=== PATIENT | female | born 1950 | race Caucasian/White ===

== ENCOUNTER → 2020-08-11 | Outpatient (CLI) | payer MEDICARE, OTHER ==
[~2020-08-11] MED LIST: ASPI81EC; ASPI81EC PO; ERGO50000; Flomax0.4 MG PO; HYDACE5 PO; KETO10 PO; LEVFLO500 PO; MAGGLU250; MULVITA; NAPR500 PO; NITR100CA PO; ONDA4 PO; ONDA8 PO; OXYACE5T PO; PHENA200 PO; Percocet 7.5-31 EACH PO; RXONDA4ODT MM; RXPROM25 PO; SULTRIDS PO; Zofran Odt4 MG SL; [UNRECOGNIZED DRUG - OTHER]
== END | disposition home or self-care (01) ==
LOC: PLD 15:40 → LAB SHORT 15:40
DX: R30.0 Dysuria (principal)
CPT/HCPCS: 87077; 87086; 87186

== ENCOUNTER → 2020-08-30 | Outpatient (CLI) | payer MEDICARE, OTHER ==
[~2020-08-30] MED LIST changes: +ASPI81CH PO
== END | disposition home or self-care (01) ==
LOC: LAB 15:50
DX: R30.0 Dysuria (principal); R10.9 Unspecified abdominal pain
CPT/HCPCS: 87077; 87086; 87186

== ENCOUNTER 2024-11-25 11:25 | Emergency (ER) | payer MEDICARE, OTHER ==
[~2024-11-25] VITALS: Ht 167.6 cm; Wt 75.3 kg
[2024-11-25 11:46] VITALS: BP 164/74
[2024-11-25] MEDS ORDERED: LIDO700A20 TOP (14:37)
[2024-11-25] MEDS ORDERED: DIAZ2 PO (14:37)
== END 2024-11-25 12:04 | disposition left against medical advice (07) ==
LOC: ER 11:25
DX: M54.9 Dorsalgia, unspecified (principal); G89.29 Other chronic pain; Z87.891 Personal history of nicotine dependence
CPT/HCPCS: 99282

== ENCOUNTER 2024-11-25 12:09 | Emergency (ER) | payer MEDICARE, OTHER ==
[~2024-11-25] VITALS: Ht 167.6 cm; Wt 75.3 kg
[2024-11-25 12:50] VITALS: BP 156/88
[2024-11-25] MEDS ORDERED: Ketorolac Tromethamine 30mg Vial IM ONE (13:50)
[2024-11-25] MEDS ORDERED: Acetaminophen 325 MG TABLET PO ONE (13:50)
[2024-11-25] MEDS ORDERED: Diazepam 5 MG Tab PO ONE (13:50)
[2024-11-25] MEDS ORDERED: Lidocaine 4% 1 Patch TOP ONE (13:50)
[2024-11-25] MEDS ORDERED: DIAZ2 PO (14:37)
[2024-11-25] MEDS ORDERED: LIDO700A20 TOP (14:37)
== END 2024-11-25 14:51 | disposition home or self-care (01) ==
LOC: ER 12:09
DX: M54.50 Low back pain, unspecified (principal); G89.29 Other chronic pain
CPT/HCPCS: 72131; 96372; 99283-25; A9270; J1885

== ENCOUNTER 2024-12-05 10:27 | Day surgery (SDC) | payer MEDICARE, OTHER ==
[~2024-12-05] VITALS: Ht 167.6 cm; Wt 77.2 kg
[~2024-12-05 10:27] MED LIST changes: +Balanced Salt Epinephrine Irrigation Solution 500 mL IR SCH; +DIAZ2 PO; +LIDO700A20 TOP; +Lidocaine HCl/Pf 1% 5 ML VIAL XX SCH; +Moxifloxacin HCL 0.5 MG/0.1 ML 0.4MLSYR LEFTEYE SCH; +PHENYLEPHRINE\\TROPICAMIDE\\TETRACAINE OPHTHALMIC DILATING SOLN LEFTEYE PRN; +Povidone-Iodine 450 DROP/30 ML Solution LEFTEYE SCH; +Povidone-Iodine 450 DROP/30 ML Solution ONE; +Tetracaine HCl/Pf 0.5% Opth Soln 4 ml ONE
[2024-12-05] MEDS ORDERED: CYCL10 (11:05)
[2024-12-05] MEDS ORDERED: CEFUROXIME AXETIL (11:05)
[2024-12-05] MEDS ORDERED: HYDROMET (11:06)
[2024-12-05] MEDS ORDERED: MIRALAX17 GM (11:06)
[2024-12-05] MEDS ORDERED: CENTRUM SILVER1 EAC2 (11:06)
[2024-12-05] MEDS ORDERED: IMODIUM A-D2 M1 (11:06)
[2024-12-05] MEDS ORDERED: [UNRECOGNIZED DRUG - OTHER] (11:06)
[2024-12-05] MEDS ORDERED: GUAI600T33 (11:07)
[2024-12-05] MEDS ORDERED: ZADITOR5 M1 (11:07)
[2024-12-05] MEDS ORDERED: [UNRECOGNIZED DRUG - SUPPLY] (11:07)
[2024-12-05] MEDS ORDERED: [UNRECOGNIZED DRUG - OTHER] (11:08)
[2024-12-05] MEDS ORDERED: Midazolam HCl 1MG / ML 2ML Vial ONE (11:08)
[2024-12-05] MEDS ORDERED: FentaNYL Citrate 50 MCG/ML 2 ML Injection ONE (11:09)
[2024-12-05 11:59] VITALS: BP 124/67
--- NOTE | 2024-12-05 12:17 | NUR ---
12/05/24 1217 Cynthia Nogueira D/Dariela INSTRUCTIONS GIVEN TO PT, UNDERSTANDING VERBALIZED. PT DENIES PAIN/NAUSEA, TOLERATING ICE WATER, VSS, ON RA. PT GIVEN EYE KIT. PT HAS ALL BELONGINGS. PT WHEELED TO PRIVATE VEHICLE, STEADY GAIT NOTED UPON TRANSFER FROM TO VEHICLE. NO VISIBLE SIGNS OF DISTRESS NOTED.
== END 2024-12-05 12:10 | disposition home or self-care (01) ==
LOC: ORSCSDS 10:27
PROVIDERS: Student in an Organized Health Care Education/Training Program
PROC: 08RK3JZ Replacement of Left Lens with Synthetic Substitute, Percutaneous Approach (ICD-10-PCS; principal; 2024-12-05 12:00)
DX: H25.813 Combined forms of age-related cataract, bilateral (principal); Z87.891 Personal history of nicotine dependence; Z79.899 Other long term (current) drug therapy
CPT/HCPCS: J2250; J3010; V2632

== ENCOUNTER 2024-12-26 09:02 | Day surgery (SDC) | payer MEDICARE, OTHER ==
[~2024-12-26] VITALS: Ht 167.6 cm; Wt 78.2 kg
[~2024-12-26 09:02] MED LIST changes: +CEFUROXIME AXETIL; +CENTRUM SILVER1 EAC2; +CYCL10; +Diazepam 5 MG Tab PO PRN; +Diazepam 5 MG Tab PO SCH; +GUAI600T33; +HYDROMET; +IMODIUM A-D2 M1; +MIRALAX17 GM; -Moxifloxacin HCL 0.5 MG/0.1 ML 0.4MLSYR LEFTEYE SCH; +Moxifloxacin HCL 0.5 MG/0.1 ML 0.4MLSYR RIGHTEYE SCH; +NS 500 ML IV ONE; +Ondansetron 4 MG SoluTab MM PRN; -PHENYLEPHRINE\\TROPICAMIDE\\TETRACAINE OPHTHALMIC DILATING SOLN LEFTEYE PRN; +PHENYLEPHRINE\\TROPICAMIDE\\TETRACAINE OPHTHALMIC DILATING SOLN RIGHTEYE PRN; -Povidone-Iodine 450 DROP/30 ML Solution LEFTEYE SCH; +Povidone-Iodine 450 DROP/30 ML Solution RIGHTEYE SCH; +ZADITOR5 M1; +[UNRECOGNIZED DRUG - OTHER]; +[UNRECOGNIZED DRUG - OTHER]; +[UNRECOGNIZED DRUG - SUPPLY]
[2024-12-26] MEDS ORDERED: NS 500 ML IV ONE (09:48)
[2024-12-26] MEDS ORDERED: Midazolam HCl 1MG / ML 2ML Vial ONE (09:48)
--- NOTE | 2024-12-26 09:49 | NUR ---
12/26/24 0949 Saurabh Talley CALL LIGHT WITHIN REACH. TETRACAINE IN RIGHT EYE AT 0939 AND PLEDGETT IN AT 0940
[2024-12-26 10:41] VITALS: BP 135/67
== END 2024-12-26 11:16 | disposition home or self-care (01) ==
LOC: ORSCSDS 09:02
PROVIDERS: Student in an Organized Health Care Education/Training Program
PROC: 08RJ3JZ Replacement of Right Lens with Synthetic Substitute, Percutaneous Approach (ICD-10-PCS; principal; 2024-12-26 10:30)
DX: H25.811 Combined forms of age-related cataract, right eye (principal); Z96.1 Presence of intraocular lens
CPT/HCPCS: J2250; J7040; V2632

== ENCOUNTER 2025-07-28 22:34 | Emergency (ER) | payer MEDICARE, OTHER ==
[~2025-07-28] VITALS: Ht 167.6 cm; Wt 76.2 kg
[~2025-07-28 22:34] MED LIST changes: -Balanced Salt Epinephrine Irrigation Solution 500 mL IR SCH; -Diazepam 5 MG Tab PO PRN; -Diazepam 5 MG Tab PO SCH; -Lidocaine HCl/Pf 1% 5 ML VIAL XX SCH; -Moxifloxacin HCL 0.5 MG/0.1 ML 0.4MLSYR RIGHTEYE SCH; -NS 500 ML IV ONE; -Ondansetron 4 MG SoluTab MM PRN; -PHENYLEPHRINE\\TROPICAMIDE\\TETRACAINE OPHTHALMIC DILATING SOLN RIGHTEYE PRN; -Povidone-Iodine 450 DROP/30 ML Solution ONE; -Povidone-Iodine 450 DROP/30 ML Solution RIGHTEYE SCH; -Tetracaine HCl/Pf 0.5% Opth Soln 4 ml ONE
[2025-07-29] MEDS ORDERED: Lidocaine 4% 1 Patch TOP ONE (02:20)
[2025-07-29] MEDS ORDERED: Ibuprofen600 MG PO (02:21)
[2025-07-29] MEDS ORDERED: LIDO700A20 TOP (02:21)
[2025-07-29 02:33] VITALS: BP 176/76
== END 2025-07-29 02:34 | disposition home or self-care (01) ==
LOC: ER 22:34
DX: M54.2 Cervicalgia (principal); G89.29 Other chronic pain; Z79.82 Long term (current) use of aspirin; Z79.899 Other long term (current) drug therapy; Z88.5 Allergy status to narcotic agent; Z88.0 Allergy status to penicillin
CPT/HCPCS: 72125; 99283-25; A9270

== ENCOUNTER → 2025-08-07 | Outpatient (CLI) | payer MEDICARE, OTHER ==
[~2025-08-07] MED LIST changes: +Ibuprofen600 MG PO
[2025-08-08 12:23] LABS: Stool Occult Bld Immuno 1 Negative (NEGATIVE)
== END ==
LOC: LAB 12:25 → LAB SHORT 12:25
PROVIDERS: Nurse Practitioner Family
DX: Z12.11 Encounter for screening for malignant neoplasm of colon (principal)
CPT/HCPCS: G0328